=== PATIENT | male | born 1935 | race Caucasian/White ===

== ENCOUNTER 2019-10-07 11:04 | Inpatient (IN) ==
--- NOTE | 2019-10-07 11:32 | PROVIDER DOCUMENTATION ---
HPI-General Adult - General Stated Complaint: fall/ hip pain Time Seen by Provider: 10/07/19 11:17 Source: patient, EMS Allergies/Adverse Reactions: Patient Allergies Allergy/AdvReac Type Severity Reaction Status Date / Time No Known Allergies Allergy Verified 10/07/19 12:48 Home Medications: Home Medication List Medication Instructions Recorded Confirmed Last Taken Type Acetaminophen [Tylenol] 325 mg PO Q6H PRN PRN 09/30/19 10/07/19 Unknown History Aspirin EC 81 mg PO DAILY 09/30/19 10/07/19 10/07/19 08:00 History Ferrous Sulfate 325 mg PO DAILY 09/30/19 10/07/19 10/07/19 08:00 History Glipizide [Glucotrol] 2 tab PO BID 09/30/19 10/07/19 10/07/19 08:00 History Hydrocortisone 1% Cream 1 applicatn TOP BID PRN 09/30/19 10/07/19 10/07/19 08:00 History Hydroxyzine HCl 50 mg PO TID 09/30/19 10/07/19 10/07/19 08:00 History Lisinopril [Zestril] 2.5 mg PO DAILY 09/30/19 10/07/19 10/07/19 08:00 History Meloxicam [Mobic] 7.5 mg PO DAILY 09/30/19 10/07/19 10/07/19 08:00 History Metformin [Glucophage] 2 tab PO BID 09/30/19 10/07/19 10/07/19 08:00 History Omeprazole 20 mg PO DAILY 09/30/19 10/07/19 10/07/19 08:00 History SIMVAstatin [Zocor] 40 mg PO QHS 09/30/19 10/07/19 10/06/19 19:00 History Sertraline HCl [Zoloft] 1.5 tab PO DAILY 09/30/19 10/07/19 10/07/19 08:00 History Sitagliptin Phosphate [Januvia] 100 mg PO DAILY 09/30/19 10/07/19 10/07/19 08:00 History Tramadol HCl [Ultram] 50 mg PO Q4H PRN PRN 09/30/19 10/07/19 10/07/19 08:00 History Triamcinolone 0.1% Cr [Kenalog 1 applicatn TOP BID 09/30/19 10/07/19 10/07/19 08:00 History 0.1% Cream] - History of Present Illness -Gen Adult Nature of Presenting Problems: Pt. is 84 yom that presents with c/o left hip pain after he reports multiple falls recently. He states he lives at an assisted living facility and they wanted him checked. He denies any other injury and denies taking any blood thinners. Location of Pain/Injury: reports: pelvis (Left). denies: none, head, face, mouth, neck, chest, upper extremity, hand(s), abdomen, back, genitalia, lower extremity, feet, upper body, lower body, generalized, other Pain Radiation: reports: no radiation. denies: arm(s), back, buttocks, chest, epigastric, feet, groin, jaw, flank (L), legs (lower), LLQ, LUQ, neck, periumbilical, flank (R), RLQ, RUQ, shoulder(s), scapula, scrotal, sternal notch, suprapubic, legs (upper), urethral, vaginal, other Quality of Pain: reports: aching. denies: burning, pressure, tightness Severity: reports: mild. denies: moderate, severe Onset/Duration: reports: gradual, 3 days ago Timing: reports: still present. denies: improving, intermittent, getting worse Context/Activities at Onset: reports: light activity, recent trauma history. denies: none, moderate activity, vigorous activity, recent emotional stress, recent physical stress, possible bad food, cold exposure, eating, out of country travel, rest, sleep, sexual activity, other Modifying Factors: improves with: immobilization. worse with: movement, palpation Associated Symptoms: reports: joint pain. denies: denies symptoms, anxiety, arm pain, back/neck pain, chest pain, constipation, cough, diaphoresis, diarrhea, dizziness, EENT symptoms, fatigue, fever/chills, genitourinary problems, headaches, heartburn, loss of appetite, malaise, muscle aches, sinus congestion/drainage, nausea, rash, seizure, shortness of breath, sensory/motor loss, pain with inspiration, swelling/mass in abdomen, syncope, vomiting, weakness, trouble walking, other Similar Symptoms Previously?: Yes Recently seen or treated by another doctor?: No Review of Systems - Adult - REVIEW OF SYSTEMS - ADULT Constitutional: reports: no symptoms reported Eyes: reports: no symptoms reported Ears, Nose, Mouth & Throat: reports: no symptoms reported Cardiovascular: reports: no symptoms reported Respiratory: reports: no symptoms reported Gastrointestinal: reports: no symptoms reported Genitourinary: reports: no symptoms reported Musculoskeletal: reports: see HPI, joint pain. denies: back pain, joint swelling, neck pain Integumentary: reports: no symptoms reported Neurological: reports: no symptoms reported Psychiatric: reports: no symptoms reported Past History - Adult - PAST MEDICAL HISTORY-ADULT Review of Records: reports: Old Records Reviewed, Nursing Assessment Review, Medications Reviewed, Social history reviewed & non-contributory. - IMMUNIZATION STATUS Childhood Immunizations: See Nurse Assessment Flu Vaccine: See Nurse Assessment - FAMILY HISTORY Family History: reviewed, not pertinent - SOCIAL HISTORY Smoking: denies Physical Exam-General - PHYSICAL EXAM-ADULT Initial Vital Signs Reviewed: Yes - CONSTITUTIONAL General Appearance: alert, mild distress, thin. negative: anxious, slow to respond, obtunded, combative - EYES Eyes: PERRL/EOMI, pink conjunctivae - HEAD, EARS, NOSE, MOUTH & THROAT HENMT: normocephalic/atraumatic, moist mucous membranes - NECK Neck: supple, normal inspection - RESPIRATORY Respiratory: lungs clear, normal breath sounds - CARDIOVASCULAR Cardiovascular: normal peripheral pulses, regular rate, rhythm - GASTROINTESTINAL (ABDOMEN) Abdominal Exam: normal bowel sounds, non tender, soft - LYMPHATIC Lymphatic: no adenopathy - MUSCULOSKELETAL Back Exam: normal inspection, no CVA tenderness, no vertebral tenderness Extremity: tenderness (Left hip). negative: deformity, erythema, inflammation, swelling Peripheral Pulses: radial (R): 2+, radial (L): 2+ - SKIN Integumentary: normal color, normal turgor, warm/dry - NEUROLOGIC Neurologic: grossly normal, no motor/sensory deficits - PSYCHIATRIC Psych/Mental Status: normal mood/affect, normal thought content, normal thought process, oriented x 3. negative: anxious, paranoid, tearful Progress - PLAN OF CARE/RESULTS Progress/Plan/Lab Results: Orders Category Date Time Status CT HEAD/C-SPINE W/O CONTRAST [CT] Stat Exams 10/07/19 11:[address] PELVIS W/O CONTRAST [CT] Stat Exams 10/07/19 11:19 Ordered CBC WITH ELECTRONIC DIFF [HEME] Stat Lab 10/07/19 11:20 Uncollected CK PROFILE [SP CHEM] Stat Lab 10/07/19 11:20 Uncollected COMPREHENSIVE METABOLIC PANEL [CHEM] Stat Lab 10/07/19 11:20 Uncollected URINALYSIS W/POSS RFLX CULT [URINALYSIS] Stat Lab 10/07/19 11:20 Uncollected EKG [EKG] Stat Ther 10/07/19 11:20 Ordered Laboratory Tests 10/07/19 10/07/19 12:35 12:35 WBC 7.87 RBC 3.55 L Hgb 9.2 L Hct 28.5 L MCV 80.3 L MCH 25.9 L MCHC 32.3 L RDW Std Deviation 13.3 Plt Count 203 MPV 8.7 Immature Gran % (Auto) 0.4 Neut % (Auto) 72.6 Lymph % (Auto) 7.4 L [place] % (Auto) 8.6 Eos % (Auto) 10.9 H Baso % (Auto) 0.1 Immature Gran # (Auto) 0.03 Neut # (Auto) 5.71 Lymph # (Auto) 0.58 L [place] # (Auto) 0.68 H Eos # (Auto) 0.86 H Baso # (Auto) 0.01 Sodium 138 Potassium 3.9 Chloride 105 Carbon Dioxide 15 L Anion Gap 18 BUN 57 H Creatinine 2.1 H Estimated GFR/1.73 m2 30 BUN/Creatinine Ratio 27 Glucose 226 H Calculated Osmolality 299 Calcium 8.6 L Total Bilirubin 0.24 AST 30 ALT 33 Alkaline Phosphatase 89 Creatine Kinase 73 Total Protein 6.4 Albumin 3.8 Globulin 2.6 Albumin/Globulin Ratio 1.5 Discussed results and plan of care with patient. Patient agrees with plan and verbalizes understanding. Result Diagrams: 10/07/19 12:35 10/07/19 12:35 - XRAY 1 XRAY Study: Chest ([facility] - [address], [address], [place] [address] [facility] - [address] , [place] [address] Department of Imaging Patient: CLARBIEL HALLMANADM Date: 10/07/19MR#: [id number] : 1935ADM Status: PRE ERAcct#: [id number] Age/Sex: 84/MRoom/Bed: Loc: ED Ordering Physician: Israel Harman Family Physician: Cristhian Damon MD Reason for Procedure: admit Signed EXAM: CHEST- PORTABLE HISTORY: admit TECHNIQUE: Single view COMPARISON: None. FINDINGS: The lungs are well expanded. The heart is not enlarged. The vessels are not distended. There are no infiltrates. No effusion identified. IMPRESSION: Negative exam. Electronically signed by Magen Mijares 10/07/2019 12:48 PM 10/07/19 1248 Interpreting Physician: Magen Mijares MD Dictated Date/Time: 10/07/19 1248 cc: Israel Harman; Cristhian Damon MD) XRAY Interpretation: See note - CT/MRI 1 CT Study: Cervical Spine ([facility] - [address] [facility] [address], [place] [address] [facility] - [address] [place] [address] Department of Imaging Patient: VINNIE HALLMAN Date: 10/07/19#: [id number] : 1935DM Status: PRE ERAt#: [id number] Age/Sex: 84/MRoom/Bed: Loc: ED Ordering Physician: Israel Harman Family Physician: Cristhian Damon MD Reason for Procedure: multiple falls Signed EXAM : CT HEAD/C-SPINE W/O CONTRAST HISTORY: multiple falls TECHNIQUE: 1. CT head without contrast 2. CT cervical spine without contrast COMPARISON: None. FINDINGS: Head: No parenchymal hemorrhage. No epidural or subdural hematoma. No subarachnoid hemorrhage. There is moderate atrophy with chronic microvascular ischemic changes. No mass identified on this noncontrasted exam. No hydrocephalus. No skull fracture. Cervical spine: Mild scoliosis. No precervical soft tissue swelling. No subluxation. No fracture. Moderate degenerative changes in the mid and lower cervical spine. The bones are osteopenic. IMPRESSION: Head: No hemorrhage. No injury. Cervical spine: No acute fracture. This exam was performed using automated exposure control, adjustment of mA or kV according to patient size, and/or use of iterative reconstruction technique. Electronically signed by Magen Mijares 10/07/2019 12:00 PM 10/07/19 1200 Interpreting Physician: Magen Mijares MD Dictated Date/Time: 10/07/19 1158 cc: Israel Harman; Cristhian Damon MD), Head CT Results: See note 2 CT Study: Pelvis ([facility] - [address] [facility] [address] [id number] [facility] - [address] [place] [id number] Department of Imaging Patient: VINNIE HALLMAN Date: 10/07/19#: [id number] : 1935DM Status: PRE ERAcct#: [id number] Age/Sex: 84/MRoom/Bed: Loc: ED Ordering Physician: Israel Harman Family Physician: Cristhian Damon MD Reason for Procedure: Fall with left hip pain Signed EXAM: CT PELVIS W/O CONTRAST HISTORY: Fall with left hip pain TECHNIQUE: CT pelvis without contrast COMPARISON: None. No plain films obtained. FINDINGS: There are fractures to the distal left superior pubic ramus extending into the pubic symphysis. Mild displacement. Nondisplaced fracture to the left inferior pubic ramus. Neither hip is dislocated. No widening of the pubic symphysis. IMPRESSION: Left superior and inferior pubic rami fractures This exam was performed using automated exposure control, adjustment of mA or kV according to patient size, and/or use of iterative reconstruction technique. Electronically signed by Catie Mijares 10/07/2019 12:07 PM 10/07/19 1207 Interpreting Physician: Magen Mijares MD Dictated Date/Time: 10/07/19 1204 cc: Israel Harman; Cristhian Damon MD) CT Results: See note - CONSULTS/PCP/HOSPITALIST Notification #1 *Consult/PCP/Hospitalist*: Dr. Colmenares Time Discussed: 12:43 Reason/Comments: Consult Consult Disposition: other (If his current assisted living has rehab then we can send back but if not admit. Pt. needs to be on lovenox or xeralto and weight bearing as tolerated.) #2 Consult: Jonelle for hospitilist Time Discussed: 13:14 Reason/Comments: Admission Consult Disposition: Will see in ED, Admit #3 Consult: Dr. Colmenares Time Discussed: 13:14 Reason/Comments: Consult Consult Disposition: other (Dr. Colmenares called to say he ordered some more films and admit to hospitilist.) Departure - Departure Date of Disposition Decision: 10/07/19 Time of Disposition Decision: 12:24 DIAGNOSIS: Renal disease, Hyperglycemia Pelvic fracture Qualifiers: Encounter type: initial encounter Pelvic bone location: pubis Sublocation of pu bis: unspecified portion of pubis Fracture type: closed Laterality: left Qualified Code(s): S32.502A - Unspecified fracture of left pubis, initial encounter for closed fracture Anemia Qualifiers: Anemia type: unspecified type Qualified Code(s): D64.9 - Anemia, unspecified Disposition: ADMITTED INPATIENT 09 Certified Medical Emergency: Emergent Condition: Stable Referrals and Follow-Ups: Cristhian Damon MD [Primary Care Provider] - - Critical Care Note This patient required my direct & personal management of CC.: No Attestation - Physician/ CHICHI Attestation Patient care was provided by Advanced Practice Provider:: Yes Advanced Practice Provider:: Israel Harman Advanced Practice Provider documentation review:: The Mid-level provider documentation, treatment plan and medical decision making was reviewed by the physician who agrees with all treatment and medical decision making by the MLP. The physician spent face to face time with patient:: No Advanced Practice Provider documentation review:: Supervising physician onsite and consulted in the evaluation and care of this patient. The physician did not have a face to face encounter with the patient.
--- NOTE | 2019-10-07 12:03 | Diag Imaging Result Doc PS360 ---
EXAM : CT HEAD/C-SPINE W/O CONTRAST HISTORY: multiple falls TECHNIQUE: 1. CT head without contrast 2. CT cervical spine without contrast COMPARISON: None. FINDINGS: Head: No parenchymal hemorrhage. No epidural or subdural hematoma. No subarachnoid hemorrhage. There is moderate atrophy with chronic microvascular ischemic changes. No mass identified on this noncontrasted exam. No hydrocephalus. No skull fracture. Cervical spine: Mild scoliosis. No precervical soft tissue swelling. No subluxation. No fracture. Moderate degenerative changes in the mid and lower cervical spine. The bones are osteopenic. IMPRESSION: Head: No hemorrhage. No injury. Cervical spine: No acute fracture. This exam was performed using automated exposure control, adjustment of mA or kV according to patient size, and/or use of iterative reconstruction technique. Electronically signed by Magen Mijares 10/07/2019 12:00 PM
--- NOTE | 2019-10-07 12:09 | Diag Imaging Result Doc PS360 ---
EXAM: CT PELVIS W/O CONTRAST HISTORY: Fall with left hip pain TECHNIQUE: CT pelvis without contrast COMPARISON: None. No plain films obtained. FINDINGS: There are fractures to the distal left superior pubic ramus extending into the pubic symphysis. Mild displacement. Nondisplaced fracture to the left inferior pubic ramus. Neither hip is dislocated. No widening of the pubic symphysis. IMPRESSION: Left superior and inferior pubic rami fractures This exam was performed using automated exposure control, adjustment of mA or kV according to patient size, and/or use of iterative reconstruction technique. Electronically signed by Magen Mijaers 10/07/2019 12:07 PM
[2019-10-07 12:44] LABS: BASO# 0.01 X1000 (0.0-0.2); BASO% 0.1 % (0.0-0.8); EOS# 0.86 X1000 (0.0-0.7); EOS% 10.9 % (0.0-10.0); HEMATOCRIT 28.5 % (42.0-52.0); HEMOGLOBIN 9.2 g/dL (14.0-18.0); IMM GRAN# 0.03 X1000 (0.0-0.04); IMM GRAN% 0.4 % (0.0-0.5); LYMPH# 0.58 X1000 (1.2-3.4); LYMPH% 7.4 % (20.5-51.1); MCH 25.9 PG (27-31); MCHC 32.3 g/dL (33-37); MCV 80.3 FL (81-99); MONO# 0.68 X1000 (0.11-0.59); MONO% 8.6 % (1.7-9.3); MPV 8.7 FL (7.4-10.4); NEUT# 5.71 X1000 (1.4-6.5); NEUT% 72.6 % (42.2-75.2); PLT 203 X1000 (130-400); RBC 3.55 XMIL (4.7-6.1); RDW 13.3 % (11.5-14.5); WBC 7.87 X1000 (4.8-10.8)
--- NOTE | 2019-10-07 12:50 | Diag Imaging Result Doc PS360 ---
EXAM: CHEST-PORTABLE HISTORY: admit TECHNIQUE: Single view COMPARISON: None. FINDINGS: The lungs are well expanded. The heart is not enlarged. The vessels are not distended. There are no infiltrates. No effusion identified. IMPRESSION: Negative exam. Electronically signed by Magen Mijares 10/07/2019 12:48 PM
[2019-10-07 13:01] LABS: ALB/GLOB RATIO 1.5; ALBUMIN 3.8 g/dL (3.5-5.0); CALCIUM 8.6 mg/dL (8.8-10.2); CREATININE 2.1 mg/dL (0.7-1.2); POTASSIUM 3.9 mmol/L (3.5-5.1); TOTAL BILIRUBIN 0.24 mg/dL (0.20-1.00); TOTAL PROTEIN 6.4 g/dL (6.3-8.3)
[2019-10-07] MEDS ORDERED: ZOFRAN IV ONE (13:05)
[2019-10-07] MEDS ORDERED: MORPHINE IV ONE (13:06)
--- NOTE | 2019-10-07 13:35 | Diag Imaging Result Doc PS360 ---
EXAM: PELVIS HISTORY: Pelvic Ring Injury TECHNIQUE: Three views COMPARISON: None. FINDINGS: The bones are osteopenic. Neither hip is dislocated. No widening of the pubic symphysis. There is a fracture through the distal left superior pubic symphysis extending into the pubic ramus no significant displacement. IMPRESSION: Left superior pubic ramus fracture extending into the pubic symphysis. The inferior pubic ramus fracture on the CT is poorly seen. Electronically signed by Magen Mijares 10/07/2019 1:33 PM
[2019-10-07] MEDS ORDERED: ULTRAM PO PRN (13:51)
[2019-10-07] MEDS ORDERED: ZOFRAN IV PRN (13:51)
[2019-10-07] MEDS ORDERED: TYLENOL PO PRN (13:51)
[2019-10-07] MEDS ORDERED: HYDROCORTISONE 1% CREAM TOP PRN (13:51)
[2019-10-07] MEDS ORDERED: MORPHINE IV PRN (13:51)
--- NOTE | 2019-10-07 15:57 | EKG Report ---
Test Performed on : 10/07/2019 3:49:18 PM Test Reason : falls Blood Pressure : / mmHG Vent. Rate : 068 BPM Atrial Rate : 068 BPM P-R Int : 184 ms QRS Dur : 074 ms QT Int : 398 ms P-R-T Axes : 050 -02 029 degrees QTc Int : 423 ms Normal sinus rhythm. Normal ECG No previous ECGs available Confirmed by Zan HAMMER, Roberto ([id number]) on 10/09/2019 8:54:11 AM
[2019-10-07] MEDS: HUMULIN R SUBQ SCH (16:56)
--- NOTE | 2019-10-07 16:58 | HISTORY AND PHYSICAL ---
SUBJECTIVE: Patient has no major complaints. OBJECTIVE: Vital signs: Blood pressure is 100/53, heart rate 70, respiratory 16, temperature 97.9 degrees, 94% on room air. Cardiovascular: Regular rate and rhythm. Pulmonary: Bilateral breath sounds. Clear to auscultation. GI: Soft, nontender, nondistended. Bowel sounds are positive. LABORATORY: White count 7, hemoglobin and hematocrit 9 and 28, platelets 203,000. BUN and creatinine of 57 and 2.1. PROBLEM LIST: 1. Status post fall with left superior ramus fracture extending into the pubis symphysis and inferior pubic ramus fracture. We will get orthopedic consultation and we will continue to monitor and for pain control and PT evaluation. Most likely, he will need some form of physical therapy, possibly inpatient. 2. Acute kidney injury. We will check urine electrolytes to evaluate for bladder retention. Continue treatment otherwise. Avoid nephrotoxic drugs. He is on, I believe, an MUKESH inhibitor and Mobic, so we will have to avoid those drugs and monitor his kidney function for improvement. We will also check anemia labs as well. This is a [id number] encounter note with ANEL Salgado. cc: Alvin Wilkerson MD
[2019-10-07] MEDS: NS 1,000 ML IV SCH (17:12)
--- NOTE | 2019-10-07 17:37 | HISTORY AND PHYSICAL ---
CHIEF COMPLAINT: Fall and hip and low abdomen pain. HISTORY OF PRESENT ILLNESS: This is an 84-year-old gentleman with a history of diabetes mellitus, gastroesophageal reflux disease, chronic kidney disease, who presents to the emergency room via EMS from the assisted living facility that he resides in. The patient states that he got up this morning and fell. When asked what made you fall he says "that's a good question," he says he has no recollection. A setter is at the bedside at the time of the interview. They both state this was an unwitnessed fall. He was able to get up out of the floor, he was able to stand up and walk short distances in the facility for short time. He sat down and called someone over told them that he was hurting so bad that he could not stand up. They tried to assist him to stand. He was unable to bear weight therefore they called 911. The sitter and the patient state that he has had multiple falls. They have been getting more frequent and over the last 3 days they have been very frequent. He was found to have a left superior ramus fracture extending into the pubic symphysis as well as a left inferior rami fracture. Dr. Colmenares was consulted by the emergency room physician and the patient is being admitted for further evaluation and treatment. PAST MEDICAL HISTORY: 1. Chronic kidney disease. 2. Diabetes mellitus. 3. Gastroesophageal reflux disease. 4. Dementia. 5. Ataxia. PAST SURGICAL HISTORY: Unknown. SOCIAL HISTORY: He denies any alcohol, tobacco, or illicit drug use. He does live in an assisted living facility and he has a son that is close by and active in his care. ALLERGIES: No known drug allergies. HOME MEDICATIONS: A list will be obtained by the nursing staff and once verified will review and restart as appropriate. REVIEW OF SYSTEMS: Discussed with patient with pertinent positives stated in the HPI. He denied any syncope, any chest pain or palpitations, any shortness of breath, cough, fever, chills, nausea, vomiting, diarrhea, constipation, black or bloody vomitus or stools, any hematuria, dysuria, frequency, urgency. PHYSICAL EXAMINATION: GENERAL: This is an 84-year-old gentleman who is lying on the stretcher in the emergency room in no distress. VITAL SIGNS: Blood pressure is 121/69 with a heart rate of 87, respirations are 16, temperature is 97.5 degrees with room air saturations 96-98%. HEENT: Pupils equal, round, react to light. EOMs are intact sclerae anicteric. Head is normocephalic, atraumatic. Mucous membranes are moist. NECK: Supple with trachea midline. CARDIOVASCULAR: Regular rate and rhythm. S1 and S2 are appreciated. He has no lower extremity edema. Calves are nontender bilateral, peripheral pulses palpable x4 extremities. PULMONARY: Breath sounds are clear with no increased work of breathing noted. Chest rises and falls symmetric respiration. Chest wall is nontender to palpation. GASTROINTESTINAL: Abdomen is soft, nontender, nondistended with bowel sounds in all 4 quadrants. GENITOURINARY: He has no CVA nor suprapubic tenderness. Bladder can be palpated up to 2 fingerbreadths above the symphysis pubis. NEUROLOGIC: He is alert, he is oriented to the sitter at his bedside, to himself. He knows he is at the hospital. He is unsure of the date or year. SKIN: Warm and dry. LABS: WBC is 7.8 with hemoglobin 9.2, hematocrit 28.5, and platelets of 203,000. Sodium 138, potassium 3.9, BUN 57, creatinine 2.1 with a glucose of [address] CT of the head reveals no hemorrhage or injury. CT of the cervical spine reveals no acute fracture. CT of the pelvis. Left superior-inferior pubic rami fractures. Chest x-ray reveals negative exam. Hip and pelvis x-ray, left superior pubic ramus fracture extending into the pubic symphysis. The inferior pubic ramus fracture on the CT is poorly seen. ASSESSMENT AND PLAN: 1. Left pubic rami fracture. Dr. Colmenares will be on board. Patient will be admitted. Will consult Physical Therapy for weightbearing as tolerated. 2. Urine retention. Mr. Blum has attempted to void multiple times and he is unable lying down. He states he never could void laying flat. He does have a distended bladder. Will order Munoz catheter and monitor. 3. Frequent falls. The patient had been receiving physical therapy in the assisted living with the hopes of building up his strength due to the falls . 4. Diabetes mellitus. We will pattern blood glucose with sliding scale insulin and will continue his medicines as appropriate once identified. 5. Gastroesophageal reflux disease. We will continue his Prilosec. 6. Dementia. We will continue Atarax. 7. Chronic kidney disease. His assisted living facility has no labs for us to compare to. His primary care doctor is Cristhian Damon. We can attempt to get labs in the morning to see what his baseline is. In the meantime will trend labs and renal dose medications. 8. Anemia. As stated above we have no prior labs. The patient is on ferrous sulfate which we will continue. Will order an anemia panel, check a CBC and BMP in the morning. 9. As stated before, the patient has been on physical therapy at assisted living. Will notify social work so this can be continued on discharge. Plan was discussed with Dr. Wilkerson. Further treatments pending hospital course. Dictated by ANEL Rinaldi for Alvin Wilkerson MD cc: ANEL Rinaldi MD
[2019-10-07] MEDS: ATARAX PO SCH (18:22)
[2019-10-07 20:38] LABS: URINE SOURCE CATH
[2019-10-07 20:54] LABS: UR CREAT RANDOM 160.3 mg/dL (14-26); UR PROT RANDOM 53.8 mg/dL
[2019-10-07] MEDS ORDERED: ZOCOR PO SCH (21:00)
[2019-10-07 21:01] LABS: BILIRUBIN URINE NEGATIVE (NEGATIVE); BLOOD URINE TRACE (NEGATIVE); COLOR YELLOW; GLUCOSE URINE 100 mg/dL (NEGATIVE); KETONE URINE NEGATIVE (NEGATIVE); LEUKOCYTES URINE NEGATIVE (NEGATIVE); NITRITE URINE NEGATIVE (NEGATIVE); PROTEIN URINE 50 mg/dL (NEGATIVE); SP GRAVITY URINE 1.023; TURBIDITY URINE HAZY (CLEAR); UROBILINOGEN URINE NORMAL (NORMAL)
[2019-10-07 21:19] LABS: UR EPITHELIAL CELLS <10 /HPF (<10); URINE BACTERIA NEGATIVE /HPF; URINE CASTS GRANULAR PRESENT; URINE CRYSTALS NONE SEEN; URINE RBC <10 /HPF (<10); URINE SMALL ROUND CELLS TRANS PRESENT; URINE WBC <10 /HPF (<10); URINE YEAST PRESENT
--- NOTE | 2019-10-08 04:00 | ORTHOPAEDICS CONSULTATION ---
DATE: 10/07/2019 SERVICE: Orthopedic Surgery. REASON FOR CONSULTATION: Left pelvic ring injury. CONSULTATION FROM: [facility]. PAST MEDICAL HISTORY: 1. Chronic kidney disease. 2. Diabetes. 3. GERD. 4. Dementia. 5. Ataxia. PAST SURGICAL HISTORY: None. MEDICATIONS: 1. Aspirin 81 mg. 2. Glipizide. 3. Hydroxyzine. 4. Meloxicam. 5. Metformin. 6. Omeprazole. 7. Sertraline. 8. Simvastatin. 9. Sitagliptin. 10. Triamcinolone cream. 11. Tylenol p.r.n. 12. Iron sulfate. 13. Lisinopril. 14. Tramadol. ALLERGIES: No known drug allergies. SOCIAL HISTORY: The patient lives in [facility] with his . He denies any tobacco, alcohol or drug use. He states he has started to use his 's rolling walker recently. FAMILY HISTORY: Noncontributory. REVIEW OF SYSTEMS: Ten point review of systems was complete and is negative other than what is listed in the history of present illness. CHIEF COMPLAINT: Left hip pain. HISTORY OF PRESENT ILLNESS: Mr. Blum is an 84-year-old gentleman who presented to [facility] after sustaining a same-level fall at his assisted living place earlier today. The patient states he fell in his bedroom. He states he has had several falls over the last week, but this most recent one is when he felt severe left hip pain. X-rays taken in the ER demonstrated left superior and inferior rami fractures, and Orthopedic Surgery was thus consulted. The patient denies any prior pelvic fracture or injuries. He takes aspirin 81 mg. He has no other complaints. PHYSICAL EXAMINATION: General: Mr. Blum is an 84-year-old male who appears well nourished, well developed, in no acute distress. He is awake, alert and oriented x3. He is very polite and cooperative during examination. Vital Signs: Temperature is 98.5 degrees Fahrenheit, heart rate 78, respiratory rate 15, blood pressure 146/71. HEENT: Normocephalic and atraumatic. Respiratory: Nonlabored breathing. Cardiovascular: Regular rate and rhythm. Extremities: Examination of the left lower extremity shows the skin to be intact. The patient has tenderness to palpation over his anterior left hemipelvis. He is nontender posteriorly around the sacrum. He is nontender over the right hemipelvis. He has no pain with log roll of his left hip. Thigh and calf were soft and compressible. Motor is intact, EHL, tibialis anterior, gastrocsoleus complex. Sensation intact to light touch L3-S1. Dorsalis pedis pulse palpable and equal bilaterally. IMAGING: AP inlet and outlet views of the pelvis were obtained demonstrating minimally displaced left-sided superior and inferior rami fractures. No obvious crush deformity in the sacrum. Pelvic ring appears stable. CT scan of the pelvis was also reviewed again demonstrating minimally displaced superior pubic rami fracture that extends into the symphysis as well as a nondisplaced inferior rami fracture. No sacral fractures or posterior pathology. LABORATORY DATA: White count 8, hemoglobin 9, hematocrit is 29, platelet count is 203,000. Sodium 138, potassium 3.9, chloride 105, CO2 is 15, BUN 57, creatinine is 2.1, glucose is 226. ASSESSMENT: An 84-year-old male with left superior and inferior pubic rami fracture. PLAN: 1. A long discussion was had with the patient regarding the diagnosis and treatment options. We will plan on treating these fractures conservatively. He has no posterior pathology and is nontender on exam. His injuries should not be structural or weightbearing preventative injuries. He can be weightbearing as tolerated on the left lower extremity. Physical Therapy will work with him on gait training and mobilization. He will likely need a walker for the next few weeks. We recommended chemical DVT prophylaxis for the next 6 weeks. The patient does have chronic kidney disease, so Lovenox is likely not a great option for him. I will defer to primary team's recommendation for chemical DVT prophylaxis. 2. Ice to the left hemipelvis as needed for pain. 3. Appreciate hospitalist recommendations. 4. Disposition per primary team. We will plan on getting post mobilization AP pelvis as well as inlet and outlet views once he works with therapy tomorrow. Assuming he has no shifting of the fracture site or his pelvic ring he can continue to be weightbearing as tolerated. I will see him in clinic in 2 weeks with repeat x-rays.
[2019-10-08] MEDS: HUMULIN R SUBQ SCH ×5 (05:37→21:28)
[2019-10-08] MEDS: KENALOG 0.1% CREAM TOP SCH ×3 (05:38→21:09)
[2019-10-08] MEDS: LOVENOX SUBQ SCH (06:21)
[2019-10-08 07:11] LABS: BASO# 0.02 X1000 (0.0-0.2); BASO% 0.2 % (0.0-0.8); EOS# 1.98 X1000 (0.0-0.7); EOS% 21.3 % (0.0-10.0); HEMATOCRIT 29.3 % (42.0-52.0); HEMOGLOBIN 9.4 g/dL (14.0-18.0); IMM GRAN# 0.04 X1000 (0.0-0.04); IMM GRAN% 0.4 % (0.0-0.5); LYMPH# 0.81 X1000 (1.2-3.4); LYMPH% 8.7 % (20.5-51.1); MCH 25.8 PG (27-31); MCHC 32.1 g/dL (33-37); MCV 80.5 FL (81-99); MONO% 9.7 % (1.7-9.3); MPV 9.2 FL (7.4-10.4); NEUT# 5.53 X1000 (1.4-6.5); NEUT% 59.7 % (42.2-75.2); PLT 235 X1000 (130-400); RBC 3.64 XMIL (4.7-6.1); RDW 13.6 % (11.5-14.5); WBC 9.28 X1000 (4.8-10.8)
[2019-10-08 07:37] LABS: TSH 2.91 uIUmL (0.27-4.20)
[2019-10-08 07:39] LABS: CALCIUM 8.7 mg/dL (8.8-10.2); CREATININE 2.1 mg/dL (0.7-1.2); POTASSIUM 4.3 mmol/L (3.5-5.1)
[2019-10-08 07:49] LABS: EOS 12 % (1-10); LYMPHS 8 % (21-51); MONO 14 % (1-9); SEGS 66 % (42-75)
--- NOTE | 2019-10-08 08:34 | ORTHOPAEDICS PROGRESS NOTE ---
DATE: 10/08/2019 SUBJECTIVE: No acute events overnight. Patient is resting comfortably. He denies pain in his left hip while laying. Hematocrit is 29. OBJECTIVE: Extremities: Examination of left lower extremity shows tenderness to palpation in his anterior hemipelvis. Nontender posteriorly over sacrum. No pain with log roll of the hip. Thigh and calf soft and compressible. Neurovascularly intact. ASSESSMENT: An 84-year-old male with left superior and inferior pubic rami fractures. PLAN: 1. Patient will be weightbearing as tolerated, left lower extremity. Physical therapy to work on gait training and mobilization using a rolling walker. 2. Ice to left hemipelvis as needed for pain. 3. Lovenox deep vein thrombosis prophylaxis. 4. The patient will need at least 6 weeks of chemical deep vein thrombosis prophylaxis given for his injury. 5. Appreciate hospitalist recommendations. 6. Disposition is per primary team. He can likely be discharged back to [facility], as long as they can get physical therapy set up there. I will see him back in clinic in 2 weeks with repeat x-rays. 7. I will plan on getting post mobilization x-rays today once he gets up with physical therapy.
[2019-10-08] MEDS: ZOLOFT PO SCH (08:50)
[2019-10-08] MEDS: PRILOSEC PO SCH (08:50)
[2019-10-08] MEDS: ASPIRIN EC PO SCH (08:50)
[2019-10-08] MEDS: ATARAX PO SCH ×3 (08:50→18:52)
[2019-10-08] MEDS: FERROUS SULFATE PO SCH (08:59)
--- NOTE | 2019-10-08 15:09 | PROGRESS NOTE ---
DATE: 10/08/2019 SUBJECTIVE: Patient resting comfortably in bed, not in any obvious distress. OBJECTIVE: Vital Signs: Temperature is 98.3 degrees, pulse 72, respiratory rate 18, blood pressure 115/54, oxygen saturation is 94%. HEENT: Atraumatic, normocephalic. Cardiovascular: S1, S2. Respiratory: Has evidence of good air entry bilaterally. Abdomen: Soft, nontender. No masses felt. Extremities: No evidence of edema. Central Nervous System: No obvious focal deficit noted. LABORATORY DATA: WBC 9.28, hematocrit 29.3, with a platelet count of 235,000. Sodium is 141, potassium 4.3, chloride is 110, bicarb 17, BUN is 53, creatinine is 2.1. Folate level is 3.9. ASSESSMENT AND PLAN: 1. Left pubic ramus fracture. The patient is not a surgical candidate. Physical therapy recommended. 2. Diabetes mellitus. Continue blood sugar monitoring as well as sliding scale insulin. 3. Gastroesophageal reflux disease. Continue proton pump inhibitor. 4. Dementia. Supportive care. 5. Folic acid deficiency. Replete folate levels. 6. Chronic kidney disease. Follow up on renal function. Avoid nephrotoxic agent. 7. Disposition. The patient can be discharged back to assisted living tomorrow. Necessary paperwork has been signed. cc: Nahid Clemons MD
[2019-10-08] MEDS: FOLIC ACID PO SCH (15:45)
[2019-10-08] MEDS: ZOCOR PO SCH (21:08)
[2019-10-09] MEDS: LOVENOX SUBQ SCH (05:13)
[2019-10-09] MEDS: NS 1,000 ML IV SCH ×3 (05:13→16:26)
[2019-10-09] MEDS: HUMULIN R SUBQ SCH ×4 (07:06→23:53)
[2019-10-09] MEDS: ZOLOFT PO SCH (08:23)
[2019-10-09] MEDS: KENALOG 0.1% CREAM TOP SCH ×2 (08:24→21:12)
[2019-10-09] MEDS: FOLIC ACID PO SCH (08:24)
[2019-10-09] MEDS: ATARAX PO SCH ×3 (08:24→19:13)
[2019-10-09] MEDS: ASPIRIN EC PO SCH (08:24)
[2019-10-09] MEDS: FERROUS SULFATE PO SCH (08:24)
[2019-10-09] MEDS: PRILOSEC PO SCH (08:24)
--- NOTE | 2019-10-09 08:54 | PROGRESS NOTE ---
DATE: 10/09/2019 SUBJECTIVE: Patient admitted on 10/07/2019, fell, and had complained of hip and lower abdominal pain. An 84-year-old with history of diabetes mellitus, gastroesophageal reflux disease, chronic kidney disease, who presented to the emergency room with EMS from assisted living facility, I think [facility]. The patient states that he got up that morning and fell. Asked what made him fall. He said he has no recollection. Sitter at the bedside said the fall was an unwitnessed fall. The patient was able to get up off the floor. He was able to stand up and walk short distances through the facility for a short time. Sat down and called someone and told them that he was hurting bad, could not stand up. They tried to assist him to stand, but he could not bear weight. Called 911. PAST MEDICAL HISTORY: 1. Chronic kidney disease. 2. Diabetes mellitus. 3. Gastroesophageal reflux disease. 4. Dementia. 5. Ataxia. ASSESSMENT AND PLAN: 1. Admitted with left pubic rami fracture, urine retention. Attempted to void multiple times, but unable to. Munoz catheter placed. He has had some frequent falls, so will pursue physical therapy. I think the plan is to go to rehab inpatient; that is what the family would like. 2. Diabetes mellitus type 2. Sugars appear well controlled. 3. Gastroesophageal reflux. 4. Dementia. 5. Chronic kidney disease. 6. Anemia, which is, I think, stable. His hematocrit is 29, hemoglobin 9.4, white count is 9280, platelet count 235,000. Blood sugars 258, 236, 162. REVIEW OF ORDERS: He is on aspirin 81 mg a day, Zocor 40 mg a day, folic acid 1 mg daily, Atarax 50 mg t.i.d., normal saline he gets at 100 mL an hour, Zoloft 150 mg p.o. daily, Ultram 50 mg every 4 hours p.r.n., he gets Atarax 50 mg p.o. t.i.d. cc: Kimani De La Cruz MD
[2019-10-09] MEDS: ZOCOR PO SCH (21:09)
[2019-10-10] MEDS: NS 1,000 ML IV SCH ×3 (02:26→12:29)
[2019-10-10] MEDS: LOVENOX SUBQ SCH (06:24)
[2019-10-10] MEDS: HUMULIN R SUBQ SCH ×2 (06:55→11:42)
--- NOTE | 2019-10-10 08:20 | ORTHOPAEDICS PROGRESS NOTE ---
DATE: 10/09/2019 SUBJECTIVE: No acute events overnight. Patient has had some urinary retention today requiring placement of a Munoz catheter. He has been tolerating a diet fine. He ambulated about 10 feet with Physical Therapy around the room today. He reports mild pain in his left hip. No other complaints. OBJECTIVE: Vital signs: Afebrile. Vital signs stable. Extremities: Examination of left hemipelvis shows skin intact. Tender to palpation over his left anterior hemipelvis. Nontender posteriorly over his sacrum. No pain with log roll of the hip. Thigh and calf soft and compressible. Neurovascularly intact. ASSESSMENT: An 84-year-old male with left superior and inferior pubic rami fracture. PLAN: 1. Patient will be weightbearing as tolerated with Physical Therapy. Physical Therapy to mobilize and work on gait training. 2. Lovenox for DVT prophylaxis. Recommend 6 weeks of chemical DVT prophylaxis upon discharge. 3. Ice to left lower extremity as needed for pain. 4. Appreciate Hospitalist recommendations. 5. Disposition. Per primary team. Plan to discharge to inpatient rehab facility. I will see him in clinic in 2 weeks with repeat x-rays of the pelvis.
--- NOTE | 2019-10-10 08:54 | PROGRESS NOTE ---
DATE: 10/10/2019 SUBJECTIVE: Mr. Blum is feeling much better. He still can't bear weight because of the pain in his pelvis, but otherwise his pain is a little less. He is eating. His bowels are moving good. OBJECTIVE: Temperature 98.3 degrees, pulse 74, respirations 18, and blood pressure 120/68. Pupils are equal and round. Lungs are clear in all lung brown. Cardiovascular regular rhythm and rate without murmur or S3. Urine output is 2200 mL. Blood sugar 135, 151, and 144. ASSESSMENT AND PLAN: 1. The patient will be weightbearing as tolerated with physical therapy. Plan is to go to rehab to try and continue to mobilize, and work on gait training. 2. He is on Lovenox for DVT prophylaxis. Recommend that for 6 weeks after discharge. 3. Ice to left shoulder extremity as needed for pain. 4. History of gastroesophageal reflux. Continue his current medication. 5. Diabetes mellitus type 2. Follow sugars. 6. Apparently, history of dementia, but he is very cooperative. He is alert and oriented x3, and has remained that way here in the hospital. 7. History of chronic kidney disease. Renal function appears stable. Blood sugars have been 191, 151, 135, and 144. cc: Kimani De La Cruz MD
[2019-10-10] MEDS: FERROUS SULFATE PO SCH (09:02)
[2019-10-10] MEDS: ASPIRIN EC PO SCH (09:02)
[2019-10-10] MEDS: PRILOSEC PO SCH (09:02)
[2019-10-10] MEDS: ATARAX PO SCH ×2 (09:02→12:45)
[2019-10-10] MEDS: ZOLOFT PO SCH (09:02)
[2019-10-10] MEDS: KENALOG 0.1% CREAM TOP SCH (09:03)
[2019-10-10] MEDS: FOLIC ACID PO SCH (09:09)
--- NOTE | 2019-10-10 10:41 | DISCHARGE SUMMARY ---
ADMISSION DATE: 10/07/2019 DISCHARGE DATE: 10/10/2019 HISTORY OF PRESENT ILLNESS: A patient of Dr. Cristhian Damon. He fell and he struck his hip, and hip and lower abdominal pain. An 84-year-old with a history of diabetes mellitus, gastroesophageal reflux disease, chronic kidney disease. Presented to the emergency room via EMS from assisted living where he resides. The patient states that he got up that morning and had a fall. He was asked what made him fall. He said, "That is a good question." Does not remember any passing out or dizziness. The sitter at the bedside at the time of the interview said this fall was unwitnessed, and so came into the emergency room. PAST MEDICAL HISTORY: 1. Chronic kidney disease. 2. Diabetes mellitus type 2. 3. Gastroesophageal reflux. 4. Dementia. 5. Ataxia. ADMISSION DIAGNOSES: 1. Left pubic rami fracture. Orthopedics evaluated. He was started on gait training and trying to get him some weightbearing, exercise. Not able to stand and walk on his own. 2. He had some urinary retention. Attempted to void a couple times while lying down. Had distended bladder and had a Munoz catheter placed. 3. He had frequent falls so need to work on his strength and conditioning. 4. Diabetes mellitus type 2. Followed his sugars. 5. Gastroesophageal reflux history. [place] he would benefit from going to rehab. We will discharge him home on Tylenol 650 mg p.o. q.6 hours p.r.n., aspirin 81 mg a day, ferrous sulfate 325 mg a day, folic acid 1 mg daily, Atarax 50 mg p.o. t.i.d., Zoloft 150 mg daily, Ultram 50 mg q.4 hours p.r.n. pain, and he has some Kenalog triamcinolone cream he can use topically as needed. cc: Kimani De La Cruz MD
[2019-10-10 12:07] VITALS: BP 130/67
== END 2019-10-10 13:31 | DRG 536 ==
LOC: SUPCPDRO → ED 11:04 → SUATTDRO 13:24 → EDIPHOLD 13:24 → 4N 15:48
PROVIDERS: ATTEND Emergency Medicine